=== PATIENT | male | born 2000 | race Caucasian/White ===

== ENCOUNTER 2022-08-24 07:52 | Day surgery (SDC) | payer OTHER, SELFPAY ==
[2022-08-23 08:30] VITALS: BMI 28.7
[2022-08-24] VITALS (8 sets, daily range): BP systolic 123–160; BP diastolic 62–75; PULSE 65–85; RESP 14–18; TEMP 36.9–37.2; O2SAT 96–100
--- NOTE | 2022-08-24 08:03 | P.ANESASSM_ITS ---
Documented by User: Sheridan Graves CRNA 08/24/22 10:04 Pre-Anesthetic Assessment Height/Weight: Height 1.91 m Weight 104.326 kg Temp Pulse Resp BP Pulse Ox O2 Del Method O2 Flow Rate 98.5 F 85 18 160/75 96 6 08/24/22 08:00 08/24/22 08:00 08/24/22 08:00 08/24/22 08:00 08/24/22 08:00 08/24/22 08:02 08/24/22 09:42 Preop Diagnosis: Umbilical hernia Operation Date: 08/24/22 09:35 Proposed Procedures p 44756 lap umbilical hernia repair w/mesh K42.9(Not Applicable) - Paco concepcion, DO Was Beta Ros taken within 24 hours: N/A Was Clonidine taken within 24 hours: N/A Last intake: Intake Last Liquid Date 08/23/22 Last Liquid Time 19:00 Last Solid Date 08/23/22 Last Solid Time 19:00 Social No alcohol and No tobacco Exam alert, oriented x 3, clear to auscultation bilaterally and regular rate & rhythm Airway Submandibular: within normal limits Cervical ROM: within normal limits Mallampati: Class I History/ROS No significant history except as noted and No significant complaints Pulmonary None reported daily THC CV/HEM None reported None reported Hepatic None reported GI None reported Metabolic None reported Musc/skel None reported Neuropsych None reported Anesthetic Plan ASA status: 1 Anesthesia: Anesthesia Evaluation, Eval. for regional block and General Risk of > 500 ml blood loss (7ml/kg in children): Yes, adequate IV access and fluids planned Medications/Allergies Home Medications Medication Instructions Recorded Confirmed Last Taken Type docusate sodium 100 mg capsule 100 mg PO BID #20 caps 08/24/22 Unknown Rx (D[facility]) hydrocodone 7.5 mg-acetaminophen 1 tab PO Q6H PRN pain #20 tabs 08/24/22 Unknown Rx 325 mg tablet Allergies Allergy/AdvReac Type Severity Reaction Status Date / Time No Known Allergies Allergy Unverified 08/24/22 07:59 Current Medications Generic Name Dose Route Start Last Admin Trade Name Freq PRN Reason Stop Dose Admin Sodium Chloride 1,000 mls @ 30 mls/hr 08/24/22 08:00 08/24/22 08:12 Sodium Chloride 0.9% IV 08/25/22 07:59 30 mls/hr .Q24H HILARIA Administration Data Anesthesia Cardiac Studies: No Data to Display Documented by User: Paul Lance 08/24/22 10:57 Pre-Anesthetic Assessment Familial anesthetic complications: none Medications/Allergies Home Medications Medication Instructions Recorded Confirmed Last Taken Type docusate sodium 100 mg capsule 100 mg PO BID #20 caps 08/24/22 Unknown Rx (DOK) hydrocodone 7.5 mg-acetaminophen 1 tab PO Q6H PRN pain #20 tabs 08/24/22 Unknown Rx 325 mg tablet Allergies Allergy/AdvReac Type Severity Reaction Status Date / Time No Known Allergies Allergy Unverified 08/24/22 07:59 Data Anesthesia Cardiac Studies: No Data to Display
[2022-08-24] MEDS: sodium chloride 0.9% 1,000 ML 30 ML IV (08:12)
--- NOTE | 2022-08-24 08:13 | W.PM.OPSUD ---
Surgery/Procedure H&P Update DATE OF PROCEDURE: August 24, 2022 DATE H&P PERFORMED: 08/01/22 PREOP DIAGNOSIS: Umbilical hernia PLANNED PROCEDURE: Operation Date: 08/24/22 09:35 Proposed Procedures p 52438 lap umbilical hernia repair w/mesh K42.9(Not Applicable) - Paco Lowe DO
[2022-08-24] MEDS: ceFAZolin 2,000 MG in sodium chloride 0.9% (plus) 50 ML 100 MG IV (08:29)
--- NOTE | 2022-08-24 09:19 | P.OP_ITS ---
Operative Report Date of procedure: August 24, 2022 Pre-op diagnosis: Preop Diagnosis Umbilical hernia Post-op diagnosis: same Procedure done: Laparoscopic repair of umbilical hernia with mesh Implants: 11 cm round ventralight mesh Specimens removed/disposition: Hernia sac Surgeon: Dr. Paco Lowe DO Anesthesia: General Estimated blood loss (mL): 5 Complications: None apparent Brief History: This very pleasant 22-year-old gentleman who came into my office with an umbilical hernia. Laparoscopic repair with mesh was indicated. The risk and benefits were explained and documented. Procedure: Patient was wheeled into the operative room and placed on the OR table in a supine position. Abdomen was inspected prepped and draped in usual sterile fashion. Time-out was performed and all present were in agreement. A 15 blade scalp was used to make a 5 millimeter incision left upper quadrant. A Veress needle was placed into the incision and intra-abdominal insufflation was brought to 15 millimeters of mercury. A 12 millimeter trocar was placed into the left lower quadrant. A 1 cm umbilical hernia was identified containing fat. The energy but device was then used to cut out the hernia sac. An 11 cm ventralight mesh was placed into the abdomen and brought up through the umbilicus using an the Krystian-Raimundo. The mesh was then tacked in place in a double crown fashion. The skeleton of the mesh was removed via the left lower quadrant. The hernia sac was then removed from the abdomen via the left lower quadrant. The left lower quadrant port site was closed with an 0 Vicryl suture in a Krystian- Raimundo in a canids-ev-wgwfs fashion. Incisions were closed with 4 O Monocryl in a subcuticular interrupted fashion. Skin glue was applied. A dressing that included cotton balls and a Tegaderm was placed over the umbilicus. Patient tolerated the procedure well.
--- NOTE | 2022-08-24 14:25 | ANE.PACU2 ---
Inpatient post-anesthesia follow up: Airway intact: Yes Vital signs: Temperature 98.8 F Pulse Rate 65 Respiratory Rate 18 Blood Pressure 125/73 Pulse Oximetry 100 Oxygen Delivery Me thod Room Air Oxygen Flow Rate 6 Fraction of Inspir ed Oxygen Hydration adequate: Yes Nausea and vomiting: No Pain level: 2 Mental status: Baseline
== END 2022-08-24 11:02 | disposition home or self-care (01) ==
PROVIDERS: Visit Provider Surgery
PROC: 0WQF4ZZ Repair Abdominal Wall, Percutaneous Endoscopic Approach (ICD-10-PCS; CPT 49595; principal; 2022-08-24 09:25)
DX: K42.9 Umbilical hernia without obstruction or gangrene (principal)
CPT/HCPCS: 49595; 88302; C1781; J0690; J1100; J1170; J1885; J2250; J2405; J2704; J2710; J2795; J3010; J3490; J7030

== ENCOUNTER 2025-02-04 11:21 | Emergency (ER) | payer OTHER, SELFPAY ==
[2025-02-04 11:23] VITALS: BP 179/80; PULSE 93; TEMP 36.8; O2SAT 99
--- NOTE | 2025-02-04 11:35 | W.ED.WOUNDLC ---
HPI - Wound/Laceration General: Chief Complaint: Wound/Laceration Stated Complaint: poss concussion, gash on left ankle Time Seen by Provider: 02/04/25 11:32 Related Data Home Medications ?Medication ?Instructions ?Recorded ?Confirmed No Known Home Medications 09/07/22 09/07/22 Allergies Allergy/AdvReac Type Severity Reaction Status Date / Time No Known Allergies Allergy Verified 02/04/25 11:29 [facility] ED PFSH: Surgical History (Updated 09/07/22 @ 15:24 by Paco Lowe DO) History of umbilical hernia repair Dr. 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
--- NOTE | 2025-02-04 11:38 | CT_ITS ---
WS: [id number] CT HEAD TECHNIQUE: Noncontrast CT of the head obtained from the skullbase to the vertex. CLINICAL INFORMATION: injury COMPARISON: None. DLP: 1431.[address] scans at [facility] use at least one of these dose optimization techniques: automated exposure control; mA and/or kV adjustment per patient size (includes targeted exams where dose is matched to clinical indication); or iterative reconstruction. FINDINGS: No evidence of intracranial hemorrhage or mass effect. Ventricular system and basal cisterns are patent. No extra-axial fluid collections. No evidence of mass or mass effect. Normal saucedo-white differentiation. Paranasal sinuses and mastoid air cells are well aerated. .Normal visualized soft tissues. CT/CT head wo con* [id number] IMPRESSION: 1. No evidence of intracranial hemorrhage or mass effect. 2. No acute intracranial findings.
--- NOTE | 2025-02-04 11:38 | CT_ITS ---
WS: [id number] CT CERVICAL TRAUMA TECHNIQUE: Noncontrast CT of the cervical spine with coronal and sagittal reformatted images. CLINICAL INFORMATION: injury COMPARISON: None. DLP: 1431.[address] scans at [facility] use at least one of these dose optimization techniques: automated exposure control; mA and/or kV adjustment per patient size (includes targeted exams where dose is matched to clinical indication); or iterative reconstruction. FINDINGS: Straightening of the normal cervical lordosis. Mild cervical curve normal craniocervical junction. Normal C1-C2 articulation. Dens is normal in appearance. Normal occipital condyles. No high-grade spinal canal narrowing. Normal C1 ring. No evidence of acute fracture or dislocation. Normal prevertebral soft tissues. Mastoids air cells are well aerated. CT/CT cervical spin wo con* [id number] IMPRESSION: No evidence of acute fracture or dislocation.
--- NOTE | 2025-02-04 11:40 | W.ED.WOUNDLC ---
HPI - Wound/Laceration General: Chief Complaint: Wound/Laceration Stated Complaint: poss concussion, gash on left ankle Time Seen by Provider: 02/04/25 11:32 Source: patient Mode of arrival: ambulatory Limitations: no limitations History of Present Illness: 24-year-old male states he is cut down trees in the limb and fell and hit him in the head. He and his posterior scalp states that knocked him down and he believes he fell on his chainsaw and has a laceration to the left lower leg. Mild headache some neck pain he has been amatory since event. Associated symptoms: Denies chills, fever(s), nausea or vomiting Related Data Home Medications ?Medication ?Instructions ?Recorded ?Confirmed No Known Home Medications 09/07/22 09/07/22 Allergies Allergy/AdvReac Type Severity Reaction Status Date / Time No Known Allergies Allergy Verified 02/04/25 11:29 Review of Systems Const: Denies: fever(s), chills, body aches or change in appetite Eyes: Denies: blurry vision or eye discomfort ENMT: Denies: throat pain or dental pain Card: Denies: chest pain Resp: Denies: dyspnea GI: Denies: abdominal pain, nausea, vomiting or diarrhea Musc: Reports: neck pain; Denies: back pain Skin/Breast: Denies: rash Neuro: Reports: headache(s) [facility] ED PFSH: Surgical History History of umbilical hernia repair Dr. Lowe Social History Smoking and tobacco/nicotine status: current every day tobacco/nicotine user e-cigarettes E-Cigarette Details: e-cigarette Physical Exam Const: COMMON NORMALS: no acute distress, patient oriented x3 and healthy appearing HENMT: COMMON NORMALS: normocephalic HEAD & SCALP: normocephalic OTHER: Posterior scalp hematoma tenderness Eye: COMMON NORMALS: Equal, round and reactive pupils present and EOMs intact bilaterally PUPIL: Yes Equal, round and reactive pupils present Neck/C-Spine: COMMON NORMALS: full ROM and supple Chest: COMMONS NORMALS: normal inspection of the chest and normal palpation of entire chest wall Resp: COMMON NORMALS: normal respiratory effort, No retractions, No use of accessory muscles and clear to auscultation bilaterally AUSCULTATION: clear to auscultation bilaterally Cardio: COMMON NORMALS: regular rate, regular rhythm and No murmurs present (Cardio) RATE: regular rate RHYTHM: regular rhythm Extremity: COMMON NORMALS: normal to inspection and full ROM Neuro: COMMON NORMALS: patient oriented x3, moves all extremities and no focal motor deficits Psych: COMMON NORMALS: mental status grossly normal, Normal thought process present and cooperative THOUGHT PROCESS: Normal thought process present Skin: COMMON NORMALS: no rashes or lesions noted NARRATIVE SKIN EXAM: 4 cm laceration to left lower leg laterally bleeding is controlled GENERAL SKIN EXAM: no rashes or lesions noted Procedures Laceration Laceration 1: Site: lower extremity Side (If applicable): left Size (cm): 5 Description: linear Depth: simple, single layer Local Anesthetic: lidocaine 1% Amount of anesthesia used (mL): 10 Pre-repair: wound explored and irrigated extensively Skin layer closed with: nylon Size (cm): 4-0 Number of sutures: 7 Technique: simple, interrupted Course Vital Signs: Vital signs: Vital Signs Temperature 98.2 F 02/04/25 11:23 Pulse Rate 86 02/04/25 12:08 Blood Pressure 145/87 02/04/25 12:08 Pulse Oximetry 99 02/04/25 12:08 Oxygen Delivery Me thod Room Air 02/04/25 12:08 MDM - Wound/Laceration Medical Decision Making Patient presents here with closed head injury after being hit by a limb he also has a laceration into his lower leg imaging here is negative and his leg was sutured he is to have sutures removed in 2 weeks he stable for discharge follow-up PCP return if worsening Medical Records I reviewed the patient's medical records. Lab Data Radiology Impressions Cervical Spine CT 02/04/25 11:38 IMPRESSION: No evidence of acute fracture or dislocation. Head CT 02/04/25 11:38 IMPRESSION: 1. No evidence of intracranial hemorrhage or mass effect. 2. No acute intracranial findings. All radiology interpretation(s) finalized by discharge Discharge Plan Discharge Patient Disposition: Home Clinical Impression: Laceration, Closed head injury Condition: Stable Prescriptions: No Action No Known Home Medications Discharge Orders: Discharge ED (Routine); Ordered 02/04/25 Ordered By: Elvira Isaac Discharge Diet: Advance as tolerated Discharge Activity: Resume usual activity Patient Instructions: Care For Your Stitches (ED), Laceration (ED), Head Injury (ED) Activity Restrictions/Additional Instructions: Suture removal in 2 weeks Print Language: Montenegrin Coding Level of Care Code ED Manager Student Services for Ken Geronimo
[2025-02-04] MEDS: HYDROcodone-acetaminophen 7.5-325 mg Tablet 1 TAB PO (11:57)
[2025-02-04] MEDS: tetanus-dipt-pertussis 0.5 mL SDV IM (11:58)
[2025-02-04 12:08] VITALS: BP 145/87; PULSE 86; O2SAT 99
[2025-02-04 12:31] VITALS: BP 156/94; PULSE 95; O2SAT 99
[2025-02-04 12:39] VITALS: BP 156/94; PULSE 94; O2SAT 99
== END 2025-02-04 12:40 | disposition home or self-care (01) ==
PROVIDERS: Emergency Provider Emergency Medicine
DX: S09.8XXA Other specified injuries of head, initial encounter (principal); S81.812A Laceration without foreign body, left lower leg, initial encounter; W20.8XXA Other cause of strike by thrown, projected or falling object, initial encounter; F17.290 Nicotine dependence, other tobacco product, uncomplicated
CPT/HCPCS: 12002; 70450; 72125; 90471; 90715; 99284; J9999